=== PATIENT | female | born 1990 | race Caucasian/White ===

== ENCOUNTER 2018-02-03 02:29 | Emergency (ER) | payer SELFPAY ==
[~2018-02-03] VITALS: Ht 162.6 cm; Wt 81.6 kg
--- NOTE | 2018-02-03 02:29 | NUR ---
PATIENT BIB BLS TO ER BED 2.
[2018-02-03 02:30] VITALS: BP 116/80
[2018-02-03] MEDS ORDERED: NACL 0.9% 1,000 ML IV ONE (02:30)
--- NOTE | 2018-02-03 02:35 | NUR ---
PATIENT IS A 27 Y/O FEMALE WHO PRESENTS TO THE ED FOR ETOH. PT STATES THAT SHE WAS COMING FROM [place]. PT REPORTS A WHOLE BOTTLE OF VODKA. PT DENIES PAIN AT THIS TIME. PT DENIES CP, SOB, REPORTS NAUSEA DENIES VOMITING/DIARRHEA. PT AWAKE AND ALERT, RR EVEN/UNLABORED. PT REPOSITIONED FOR COMFORT, BED IN LOWEST POSITION. ER MD DR. CHUNG NOTIFIED. WILL CONTINUE TO MONITOR.
--- NOTE | 2018-02-03 03:32 | NUR ---
CALLED [phone]. SPOKE WITH TITO; STATES THAT HE WILL COME TO PICKUP PT.
[2018-02-03 04:00] VITALS: BP 115/75
--- NOTE | 2018-02-03 04:00 | NUR ---
Patient discharged with v/s stable. Written and verbal after care instructions given and explained. Patient verbalized understanding. Ambulatory with steady gait. All questions addressed prior to discharge. Advised to follow up with PMD.
== END 2018-02-03 04:00 | disposition home or self-care (01) ==
LOC: MED 02:29
DX: F10.129 Alcohol abuse with intoxication, unspecified (principal); Y90.9 Presence of alcohol in blood, level not specified
CPT/HCPCS: 99283